=== PATIENT | female | born 1980 | race Caucasian/White ===

== ENCOUNTER 2018-11-12 09:50 | Emergency (ER) | payer OTHER ==
[~2018-11-12] VITALS: Ht 170.2 cm; Wt 68.0 kg
--- NOTE | 2018-11-12 10:00 | NUR ---
C/O HEADACHE x 3 DAYS, WORST TODAY, +N/V, BODY PAIN, AFEBRILE. PATIENT PLACED ON THE MONITOR. KEPT COMFORTABLE, WILL CONTINUE TO MONITOR.
[2018-11-12] MEDS ORDERED: ONDANSETRON HCL/PF 4 MG/2 ML VIAL ONE (10:11)
[2018-11-12 10:18] LABS: BASOPHILS % (AUTO) 0.5 % (0.0-2.0); EOSINOPHILS % (AUTO) 0.4 % (0.0-6.0); HEMATOCRIT 38 % (33-45); HEMOGLOBIN 13.2 g/dL (11.5-14.8); LYMPHOCYTES # (AUTO) 0.5 /CMM (0.8-4.8); LYMPHOCYTES % (AUTO) 15.7 % (20.0-44.0); MEAN CORPUSCULAR HGB CONC 35 g/dl (31.0-36.0); MEAN CORPUSCULAR VOLUME 94 fL (82-100); MONOCYTES # (AUTO) 0.4 /CMM (0.1-1.30); MONOCYTES % (AUTO) 12.1 % (2.0-12.0); NEUTROPHILS # (AUTO) 2.3 /CMM (1.8-8.9); NEUTROPHILS % (AUTO) 71.3 % (43.0-81.0); PLATELET COUNT (AUTO) 170 /CMM (150-450); RED BLOOD CELL COUNT(AUTO) 4.06 MIL/uL (4.0-5.2); WHITE BLOOD COUNT (AUTO) 3.2 K/uL (4.3-11.0)
[2018-11-12 10:25] LABS: CALCIUM, SERUM 7.7 mg/dL (8.5-10.1); CREATININE 0.8 mg/dL (0.6-1.3); POTASSIUM 3.6 mmol/L (3.5-5.1)
[2018-11-12] MEDS ORDERED: ONDANSETRON HCL/PF 4 MG/2 ML VIAL IVP ONE (10:30)
[2018-11-12] MEDS ORDERED: IV NS 0.9% 1,000 ML BAG IV ONE (10:30)
[2018-11-12 10:31] LABS: ALBUMIN 3.7 g/dL (3.4-5.0); BILIRUBIN,DIRECT 0.2 mg/dL (0.0-0.2); BILIRUBIN,TOTAL 0.8 mg/dL (0.2-1.0); TOTAL PROTEIN, SERUM 7.4 g/dL (6.4-8.2)
--- NOTE | 2018-11-12 11:54 | NUR ---
PIV removed, RX provided. Patient discharged to home in stable condition. Written and verbal after care instructions given. Patient verbalizes understanding of instruction.
[2018-11-12 11:57] VITALS: BP 111/70
== END 2018-11-12 11:58 | disposition home or self-care (01) ==
LOC: ER 09:55
DX: J06.9 Acute upper respiratory infection, unspecified (principal)
CPT/HCPCS: 36415; 80048; 80076; 84702; 85025; 96361; 96374; 99283; J2405; J7030

== ENCOUNTER 2021-10-24 15:37 | Emergency (ER) | payer OTHER ==
[~2021-10-24] VITALS: Ht 170.2 cm; Wt 72.6 kg
[2021-10-24 15:51] VITALS: BP 137/89
[2021-10-24] MEDS ORDERED: IBUPROFEN 600 MG TABLET ONE (16:10)
[2021-10-24] MEDS ORDERED: IBUPROFEN 600 MG TABLET PO ONE (16:30)
[2021-10-24] MEDS ORDERED: IBUP-1957 PO (16:42)
--- NOTE | 2021-10-24 16:51 | NUR ---
FUEL CE[employer]ILDER AT BEDSIDE TO PROVIDE CRUTCHES.
--- NOTE | 2021-10-24 17:17 | NUR ---
Patient discharged to home in stable condition. Written and verbal after care instructions given. Patient verbalizes understanding of instruction.
== END 2021-10-24 17:18 | disposition home or self-care (01) ==
LOC: ER 15:44
DX: S93.601A Unspecified sprain of right foot, initial encounter (principal); W22.8XXA Striking against or struck by other objects, initial encounter; Y93.66 Activity, soccer; Y92.322 Soccer field as the place of occurrence of the external cause; Y99.8 Other external cause status
CPT/HCPCS: 73630-TC

== ENCOUNTER 2025-04-19 12:28 | Emergency (ER) | payer OTHER ==
[~2025-04-19] VITALS: Ht 170.2 cm; Wt 94.3 kg
[~2025-04-19 12:28] MED LIST: IBUP-1957 PO
[2025-04-19 13:21] LABS: PLATELET COUNT (AUTO) 280 K/uL (150-450); RED BLOOD CELL COUNT(AUTO) 4.63 MIL/uL (4.0-5.2); RED CELL DISTRIBUTION WIDTH 13.4 % (11.5-15.0); WHITE BLOOD COUNT (AUTO) 6.3 K/uL (4.3-11.0)
[2025-04-19 13:29] LABS: CALCIUM, SERUM 8.3 mg/dL (8.5-10.1); CREATININE 0.7 mg/dL (0.6-1.3); SODIUM SERUM 137 mmol/L (136-145); UREA NITROGEN, BLOOD 9 mg/dL (7-18)
[2025-04-19 13:42] LABS: ASPARTATE AMINOTRANSFERASE 48 U/L (15-37); NT-PRO BNP 23 pg/mL (0-125); TOTAL PROTEIN, SERUM 7.7 g/dL (6.4-8.2)
[2025-04-19] MEDS ORDERED: IOHEXOL-350 100 ML VIAL IV ONE (14:44)
[2025-04-19] MEDS ORDERED: IV NS 0.9% 250 ML IV ONE (14:45)
[2025-04-19] MEDS ORDERED: HYDR25TA4 PO (15:06)
[2025-04-19 15:49] VITALS: BP 150/95; TEMP 98.7; O2SAT 99
== END 2025-04-19 15:50 | disposition home or self-care (01) ==
LOC: ER 12:33
DX: R06.09 Other forms of dyspnea (principal); R22.42 Localized swelling, mass and lump, left lower limb; I10 Essential (primary) hypertension; Z79.899 Other long term (current) drug therapy; Z20.822 Contact with and (suspected) exposure to COVID-19; Z86.718 Personal history of other venous thrombosis and embolism
CPT/HCPCS: 99285; 71275; 93971; 71045; 87426; 93005 ×2; 87804 ×2; 85025; 80048; 80076; 85378; 36415; 84484 ×2; 83880; J7050; Q9967